=== PATIENT | male | born 2000 | race African-American/Black ===

== ENCOUNTER 2025-02-15 14:00 | Emergency (ER) | payer MEDICAID ==
[~2025-02-15] VITALS: Ht 185.4 cm; Wt 59.0 kg
[2025-02-15 14:03] VITALS: TEMP 36.7; O2SAT 100
[2025-02-15 14:50] VITALS: BP 120/66; PULSE 60; RESP 16; O2SAT 100
== END 2025-02-15 14:54 | disposition home or self-care (01) ==
LOC: ER 14:00
DX: J45.909 Unspecified asthma, uncomplicated (principal); R00.2 Palpitations; Z55.6 Problems related to health literacy
CPT/HCPCS: 93005; 99283